=== PATIENT | male | born 1950 | race Caucasian/White ===

== ENCOUNTER 2020-12-03 11:19 | Outpatient (RCR) | payer MEDICARE, OTHER, SELFPAY | END 2020-12-12 23:59 | disposition home or self-care (01) | LOC: SPT 11:19 | PROVIDERS: Family Provider Internal Medicine; PCP Internal Medicine; Referring Provider Internal Medicine; Visit Provider Internal Medicine | DX: H81.10 Benign paroxysmal vertigo, unspecified ear (principal) | CPT/HCPCS: 95992; 97110; 97162 ==

== ENCOUNTER 2023-06-09 08:20 | Outpatient (CLI) | payer MEDICARE, SELFPAY ==
--- NOTE | 2023-06-09 08:30 | CT_ITS ---
WS: [id number] CT ABDOMEN WITH CONTRAST HISTORY: ABDOMINAL PAIN Contiguous single phase 5 mm axial imaging performed to the abdomen. Oral contrast has been provided. Coronal and sagittal reformats are submitted. All CT scans at [facility] use at least one of these dose optimization techniques: automated exposure control; mA and/or kV adjustment per patient size (includes targeted exams where dose is matched to clinical indication); or iterative reconstruct ion. IV CONTRAST: Omnipaque 350; 100 mL IV. Oral contrast: Yes. DLP: 449.69 mGy.cm COMPARISON: 07/29/2014 and ultrasound 05/07/2023 Lower thorax: Benign granulomata at the lung bases. Heart is normal size. No hiatal hernia. Liver/biliary system: Normal size liver with granulomata. Cyst in the LEFT lobe of the liver measures 0.8 mm. No mass or bile duct dilatation. Normal portal vein. Gallbladder: Prior cholecystectomy. Pancreas: Normal size pancreas and pancreatic duct. No adjacent inflammation. Spleen: Normal with granulomata. Adrenal glands: Normal. Right kidney: Normal size kidney. There is scattered low-attenuation masses consistent with cysts. So me of these are too small to characterize. No solid mass or obstruction. Left kidney: Normal size kidney with several cortical cysts. The largest measuring up to 1.2 cm in th e upper pole. There are additional low-attenuation areas which are too small to characterize but prob ably cysts also. Aorta: Normal. Very small caliber celiac axis. There is not a lot of stenosis. This may be congenital . SMA is normal. Lymphadenopathy: Single subcentimeter lymph node in the RIGHT lower quadrant. Free fluid: None. GI tract: As visualized in the abdomen there are few scattered diverticula. No wall thickening or adj acent inflammation. Abdominal wall: Unremarkable abdominal wall. No hernia. Visualized osseous structures: Unremarkable. IMPRESSION: 1. No acute abdominal or pelvic abnormalities are identified. 2. Prior cholecystectomy. 3. Bilateral renal cysts. No solid masses or obstruction. 4. 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 No ischemic changes in the GI tract ident ified at this time.
[2023-06-09] MEDS: iohexol 350 mg/mL 500 mL Btl (per mL) PO (09:01)
[2023-06-09 09:12] LABS: Blood Urea Nitrogen 11 mg/dL (8-23)
[2023-06-09] MEDS: iohexol 350 mg/mL 500 mL Btl (per mL) IV (09:17)
== END 2023-06-09 08:21 | disposition home or self-care (01) ==
PROVIDERS: Radiology Diagnostic Radiology; PCP Internal Medicine; Visit Provider Internal Medicine
DX: R10.9 Unspecified abdominal pain (principal); Z90.49 Acquired absence of other specified parts of digestive tract
CPT/HCPCS: 74160; 82565; 84520; Q9967

== ENCOUNTER 2023-11-11 07:27 | Outpatient (RCR) | payer MEDICARE, SELFPAY | END 2023-11-12 23:59 | disposition home or self-care (01) | LOC: SPT 07:27 | PROVIDERS: PCP Internal Medicine; Visit Provider Internal Medicine | DX: M24.812 Other specific joint derangements of left shoulder, not elsewhere classified (principal) | CPT/HCPCS: 97161 ==

== ENCOUNTER 2023-11-13 06:00 | Outpatient (RCR) | payer MEDICARE, SELFPAY | END 2023-12-13 23:59 | disposition home or self-care (01) | LOC: SPT 06:00 | PROVIDERS: PCP Internal Medicine; Visit Provider Internal Medicine | DX: M24.812 Other specific joint derangements of left shoulder, not elsewhere classified (principal) | CPT/HCPCS: 97110 ==

== ENCOUNTER 2023-12-14 06:00 | Outpatient (RCR) | payer MEDICARE, SELFPAY | END 2023-12-22 23:59 | disposition home or self-care (01) | LOC: SPT 06:00 | PROVIDERS: PCP Internal Medicine; Visit Provider Internal Medicine | DX: M24.812 Other specific joint derangements of left shoulder, not elsewhere classified (principal) | CPT/HCPCS: 97530 ==

== ENCOUNTER 2024-10-26 09:21 | Outpatient (RCR) | payer MEDICARE, SELFPAY | END 2024-11-11 23:59 | disposition home or self-care (01) | LOC: SPT 09:21 | PROVIDERS: Visit Provider Family Medicine | DX: M75.22 Bicipital tendinitis, left shoulder (principal) | CPT/HCPCS: 97110; 97161 ==

== ENCOUNTER 2024-11-12 06:30 | Outpatient (RCR) | payer MEDICARE, SELFPAY | END 2024-12-12 23:59 | disposition home or self-care (01) | LOC: SPT 06:30 | PROVIDERS: Visit Provider Family Medicine | DX: M75.22 Bicipital tendinitis, left shoulder (principal) | CPT/HCPCS: 97032; 97110; 97164 ==

== ENCOUNTER 2024-12-13 06:00 | Outpatient (RCR) | payer MEDICARE, SELFPAY | END 2024-12-23 08:25 | disposition home or self-care (01) | LOC: SPT 06:00 | PROVIDERS: Visit Provider Family Medicine | DX: M25.522 Pain in left elbow (principal); M25.512 Pain in left shoulder | CPT/HCPCS: 97110; 97140 ==

== ENCOUNTER → 2025-01-11 08:57 | Outpatient (BNVA) | payer MEDICARE, SELFPAY | PROVIDERS: PCP Family Medicine; Visit Provider Student in an Organized Health Care Education/Training Program | DX: M25.522 Pain in left elbow (principal); S46.002A Unspecified injury of muscle(s) and tendon(s) of the rotator cuff of left shoulder, initial encounter; M75.122 Complete rotator cuff tear or rupture of left shoulder, not specified as traumatic; X58.XXXA Exposure to other specified factors, initial encounter | CPT/HCPCS: 20610; 73080; 99204; J3301; J9999 ==

== ENCOUNTER → 2025-05-10 11:01 | Outpatient (BNVA) | payer MEDICARE, SELFPAY | PROVIDERS: PCP Family Medicine; Visit Provider Student in an Organized Health Care Education/Training Program | DX: S46.002A Unspecified injury of muscle(s) and tendon(s) of the rotator cuff of left shoulder, initial encounter (principal); Z71.89 Other specified counseling; M75.42 Impingement syndrome of left shoulder; X58.XXXA Exposure to other specified factors, initial encounter | CPT/HCPCS: 20610; 99213; J3301; J9999 ==

== ENCOUNTER 2025-05-30 12:09 | Observation (INO) | payer MEDICARE, SELFPAY ==
[2025-05-30] VITALS (30 sets, daily range): BP systolic 109–134; BP diastolic 62–81; PULSE 50–78; RESP 13–23; TEMP 36.4–36.8; O2SAT 92–98; BMI 29.3
--- NOTE | 2025-05-30 12:11 | ECG_ITS ---
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 Measurements Intervals [place] Rate: 75 P: 32 MN: 164 QRS: -1 QRSD: 159 T: 124 QT: 399 QTc: 446 Interpretive Statements SINUS RHYTHM LEFT BUNDLE BRANCH BLOCK [120+ ms QRS DURATION, 80+ ms Q/S IN V1/V2, 85+ ms R IN I/aVL/V5/V6] No previous ECG available for comparison Electronically Signed On 05-30-2025 17:43:28 CDT by Tessa Lawler M.D. [email or web address]
--- NOTE | 2025-05-30 12:24 | ECG_ITS ---
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 Measurements Intervals [place] Rate: 68 P: 163 DC: 181 QRS: 204 QRSD: 157 T: 50 QT: 415 QTc: 444 Interpretive Statements SINUS RHYTHM ARM LEADS REVERSED [INVERTED P AND QRS IN I] Left bundle branch block pattern Electronically Signed On 05-30-2025 17:43:23 CDT by Tessa Lawler M.D. [email or web address]
--- NOTE | 2025-05-30 12:46 | XR_ITS ---
WS: [id number] XR chest 1V portable [id number] REASON FOR EXAM: chest pain FINDINGS: Mild tortuosity and ectasia of the thoracic aorta. Normal heart size. Calcified granulomatous disease bilaterally. No acute pulmonary parenchymal or pleural abnormality is identified. Moderate degenerative spondylosis in the mid and lower thoracic spine. XR/XR chest 1V portable [id number] IMPRESSION: No acute chest abnormality.
--- OUTSIDE RECORDS SUMMARY | 2025-05-30 13:01 | XMS_ITS | Clinical Summary ---
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
--- OUTSIDE RECORDS SUMMARY | 2025-05-30 13:02 | XMS_ITS | Encounter Summary ---
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) Social History Tobacco Use Types Packs/Day Years Used Date Smoking Tobacco: Never Assessed Sex and Gender Information Value Date Recorded Sex Assigned at Not on file 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 Gender Identity Not on file Sexual Orientation Not on file documented as of this encounter Plan of Treatment Not on file documented as of this encounter Procedures Procedure Name Priority Date/Time Associated Diagnosis Comments T3 FREE Routine 06/20/2007 3:39 PM CDT T4 FREE Routine 06/20/2007 3:39 PM CDT CBC WITH DIFFERENTIAL Routine 06/20/2007 4:31 AM CDT SEDIMENTATION RATE Routine 06/20/2007 4: 31 AM CDT PROTIME-INR Routine 06/20/2007 4:31 AM CDT TSH Routine 06/20/2007 4:31 AM CDT LIPID PANEL Routine 06/20/2007 4:31 AM CDT COMPREHENSIVE METABOLIC PANEL Routine 06/20/2007 4:31 AM CDT POC GLUCOSE Routine 06/20/2007 4:22 AM CDT POC GLUCOSE Routine 06/20/2007 2:23 AM CDT IR VENOUS HEAD Routine 06/19/2007 10:32 PM CDT MRI BRAIN W WO CONTRAST Routine 06/19/2007 10:[address] HEAD WO CONTRAST Routine 06/19/2007 1 0:[address] HEAD WO CONTRAST Routine 06/19/2007 1 0:32 PM CDT XR CHEST PA OR AP 1 VW Routine 7 10:32 PM CDT PT AND APTT Routine 06/19/2007 9:02 PM CDT CBC WITH DIFFERENTIAL Routine 06/19/2007 9:02 PM CDT POC ELECTROLYTES/BMP Routine 06/19/2007 8:52 PM CDT POC CREATININE Routine 06/19/2007 8:51 PM CDT documented in this encounter Results * T4 FREE (06/20/2007 3:39 PM CDT) T4 FREE 1.01 0.89 - 1.76 ng/dL INTERFACE SYSTEM 06/20/2007 3:39 PM CDT us Isabella Sanchez MD CHEMISTRY ORDERABLES Robert erika INTERFACE SYSTEM Refer to clinic/hospital department * T3 FREE (06/20/2007 3:39 PM CDT) T3 FREE 2.5 2.3 - 4.2 pg/mL INTERFACE SYSTEM 06/20/2007 3:39 PM CDT Isabella Sanchez MD CHEMISTRY ORDERABLES Robert erika Performing Organization Address [facility] de Phone Number INTERFACE SYSTEM Refer to clinic/hospital department * (ABNORMAL) TSH (06/20/2007 4:31 AM CDT) TSH 6.610(H) 0.350 - 5.500 uIU/ml INTERFACE SYSTEM Comment: As of 05 at 3:00 p.m. [facility] has changed the methodology for TSH, and with this change the reference range has changed from 0.49-4.67 to 0.35-5.5 uIU/ml. 06/20/2007 4:31 AM CDT us Isabella Sanchez MD CHEMISTRY ORDERABLES Robert erika Performing Organization Address [facility] Phone Number INTERFACE SYSTEM Refer to clinic/hospital department * (ABNORMAL) LIPID PANEL (06/20/2007 4:31 AM CDT) CHOLESTEROL 156 75 - 200 mg/dL INTERFACE SYSTEM TRIGLYCERIDE 323(H) 0 - 200 mg/dL INTERFACE SYSTEM HDL 27(L) 40 - 60 mg/dL INTERFACE SYSTEM CALCULATED LDL CHOLESTEROL 64 0 - 130 mg/dL INTERFACE SYSTEM CALCULATED TOTAL CHOLESTEROL TO HDL RATIO 5.78(H) 3.43 - 4.97 INTERFACE SYSTEM 06/20/2007 4:31 AM CDT us Isabella Sanchez MD CHEMISTRY ORDERABLES Robert erika Performing Organization Address [facility] de Phone Number INTERFACE SYSTEM Refer to clinic/hospital department * (ABNORMAL) COMPREHENSIVE METABOLIC PANEL (06/20/2007 4:31 AM CDT) GLUCOSE 97 70 - 110 mg/dL INTERFACE SYSTEM BUN 16 9 - 20 mg/dL INTERFACE SYSTEM CREATININE 1.2 0.7 - 1.5 mg/dL INTERFACE SYSTEM SODIUM 141 136 - 145 mEq/L INTERFACE SYSTEM POTASSIUM 4.0 3.5 - 5.0 mEq/L INTERFACE SYSTEM CHLORIDE 111(H) 95 - 110 mEq/L INTERFACE SYSTEM CO2 26 22 - 32 mmol/l INTERFACE SYSTEM CALCIUM 8.5 8.4 - 10.5 mg/dL INTERFACE SYSTEM TOTAL PROTEIN 6.1(L) 6.3 - 8.2 g/dL INTERFACE SYSTEM ALBUMIN 3.6 3.5 - 5.0 g/dL INTERFACE SYSTEM ALKALINE PHOSPHATASE 50 25 - 100 U/L INTERFACE SYSTEM AST 25 8 - 33 U/L INTERFACE SYSTEM ALT 22 4 - 36 IU/L INTERFACE SYSTEM BILIRUBIN TOTAL 0.3 0.3 - 1.2 mg/dL INTERFACE SYSTEM GLOBULIN (CALC) 2.5 2.4 - 3.9 g/dL INTERFACE SYSTEM ALBUMIN/GLOBULIN RATIO 1.4 1.0 - 2.3 INTERFACE SYSTEM ANION GAP 8(L) 9 - 20 mEq/L INTERFACE SYSTEM OSMOLALITY, CALCULATED 291 275 - 295 mOsm/Kg INTERFACE SYSTEM 06/20/2007 4:31 AM CDT Isabella Sanchez MD CHEMISTRY ORDERABLES Robert erika INTERFACE SYSTEM Refer to clinic/hospital department * PROTIME-INR (06/20/2007 4:31 AM CDT) PROTIME 14.8 13.0 - 15.7 Secs INTERFACE SYSTEM Comment: As of 06 note change in normal range. INR 1.0 INTERFACE SYSTEM Comment: Expected Values for INR: DVT/PE Goal INR 2.5; range 2.0 - 3.0 Valve Replacement Tissue Goal INR 2.5; range 2.0 - 3.0 Mechanical Goal INR 3.0; range 2.5 - 3.5 POST-PA Goal INR 2.5; range 2.0 - 3.0 or Goal 3.0; range 2.5 - 3.5 Atrial Fibrillation Goal INR 2.5; range 2.0 - 3.0 Ischemic Stroke Goal INR 2.5; range 2.0 - 3.0 For additional information see Guidelines for Anticoagulation available from the pharmacy Paresh Johnson 06/20/2007 4:31 AM CDT Isabella Sanchez MD HEMATOLOGY ORDERABLES Ed ited INTERFACE SYSTEM Refer to clinic/hospital department * SEDIMENTATION RATE (06/20/2007 4:31 AM CDT) ESR (SEDIMENTATION RATE) 12 0 - 20 mm/hr INTERFACE SYSTEM 06/20/2007 4:31 AM CDT Isabella Sanchez MD HEMATOLOGY ORDERABLES Ed ited Performing Organization Address City/[facility] de Phone Number INTERFACE SYSTEM Refer to clinic/hospital department * (ABNORMAL) CBC WITH DIFFERENTIAL (06/20/2007 4:31 AM CDT) WBC 4.1(L) 4.8 - 10.8 K/ul INTERFACE SYSTEM RBC 4.64 4.60 - 6.20 Mil/ul INTERFACE SYSTEM HEMOGLOBIN 12.3(L) 14.0 - 18.0 g/dL INTERFACE SYSTEM HEMATOCRIT 38.1(L) 41.0 - 53.0 % INTERFACE SYSTEM MCV 82.1(L) 84.0 - 103.0 Fl INTERFACE SYSTEM MCH 26.5(L) 27.0 - 34.0 pg INTERFACE SYSTEM MCHC 32.3 30.0 - 35.0 g/dL INTERFACE SYSTEM RDW 14.8(H) 11.0 - 14.5 % INTERFACE SYSTEM PLATELETS 175 140 - 440 K/ul INTERFACE SYSTEM MPV 10.4 8.9 - 12.8 Fl INTERFACE SYSTEM NEUTROPHILS 54.6 42.2 - 75.2 % INTERFACE SYSTEM LYMPHOCYTES 30.0 24.0 - 44.0 % INTERFACE SYSTEM MONOCYTES 9.8 2.0 - 10.0 % INTERFACE SYSTEM EOSINOPHILS 4.6 0.0 - 7.0 % INTERFACE SYSTEM BASOPHILS 1.0 0.0 - 1.0 % INTERFACE SYSTEM NEUTROPHIL ABSOLUTE 2.2 2.0 - 8.0 K/ul INTERFACE SYSTEM LYMPHOCYTE ABSOLUTE 1.2 1.2 - 4.0 K/ul INTERFACE SYSTEM MONOCYTE ABSOLUTE 0.4 0.1 - 0.6 K/ul INTERFACE SYSTEM EOSINOPHIL ABSOLUTE 0.2 0.0 - 0.7 K/ul INTERFACE SYSTEM BASOPHILS ABSOLUTE 0.0 0.0 - 0.2 K/ul INTERFACE SYSTEM 06/20/2007 4:31 AM CDT us Isabella Sanchez MD HEMATOLOGY ORDERABLES Ed ited Performing Organization Address [facility] Phone Number INTERFACE SYSTEM Refer to clinic/hospital department * (ABNORMAL) POC GLUCOSE (06/20/2007 4:22 AM CDT) GLUCOSE POC 105(H) 60 - 100 mg/dL INTERFACE SYSTEM 06/20/2007 4:22 AM CDT us Isabella Sanchez MD POINT OF CARE TESTING Ed ited Performing Organization Address [facility] Phone Number INTERFACE SYSTEM Refer to clinic/hospital department * (ABNORMAL) POC GLUCOSE (06/20/2007 2:23 AM CDT) GLUCOSE POC 119(H) 60 - 100 mg/dL INTERFACE SYSTEM 06/20/2007 2:23 AM CDT us Isabella Sanchez MD POINT OF CARE TESTING Ed ited Performing Organization Address [facility] Phone Number INTERFACE SYSTEM Refer to clinic/hospital department * CT HEAD WO CONTRAST (06/19/2007 10:32 PM CDT) Anatomical Region Laterality Modality Head Other 06/19/2007 10:3 2 PM CDT Narrative 06/19/2007 10:32 PM CDT Exam: CT Head without ContrastDate/Time of Exam: Jun 21, 2007 1:17:21 AMHistory: Stroke. Technique: 2.5 and 5.0 mm axial. Comparison: CT head of 06/19/2007. Findings: The ventricles and subarachnoid spaces are symmetric. The brain parenchyma is normal inattenuation with preservation of the sherwood-white matter interface. No intracranial hemorrhage isidentified. The visualized paranasal sinuses, orbits, and mastoid air cells are unremarkable. Impression: 1. Negative for acute intracranial process. - Dictated By: Francesca Paige M.D. Electronically Signed By: Francesca Paige M.D. Date Signed: 06/21/07 Procedure Note 08/05/2009 Exam: CT Head without ContrastDate/Time of Exam: Jun 21, 2007 1:17:21 AMHistory: Stroke. Technique: 2.5 and 5.0 mm axial. Comparison: CT head of 06/19/2007. Findings: The ventricles and subarachnoid spaces are symmetric. The brain parenchymais normal inattenuation with preservation of the sherwood-white matter interface. No intracranialhemorrhage isidentified. The visualized paranasal sinuses, orbits, and mastoid air cells are unremarkable. Impression: 1. Negative for acute intracranial process. - Dictated By: Francesca Paige M.D. Electronically Signed By: Francesca Paige M.D. Date Signed: 06/21/[address] ORDERABLES Final Result * MRI BRAIN W WO CONTRAST (06/19/2007 10:32 PM CDT) Anatomical Region Laterality Modality Head Other 06/19/2007 10:3 2 PM CDT Narrative 06/19/2007 10:32 PM CDT The patient has aphasia and right-sided weakness. Status post TPA and intervention. No structural lesions of the brain are identified on the noncontrast T1-weighted images. Theintracranial flow-voids are unremarkable. The posterior fossa has a normal appearance of thebrainstem and cerebellum. FLAIR images show no sites of abnormal signal throughout the brain. DWIshows no sites of restricted diffusion. 20 mL of Magnevist contrast were given during this study. Postcontrast images show no areas ofabnormal enhancement, and a normal appearance of the meninges. Impression: No appreciable disease. - Dictated By: Braden Clements M.D. Electronically Signed By: Braden Clements M.D. Date Signed: 06/20/07 Procedure Note 08/05/2009 The patient has aphasia and right-sided weakness. Status post TPA andintervention. No structural lesions of the brain are identified on the noncontrastT1-weighted images. Theintracranial flow-voids are unremarkable. The posterior fossa has a normal appearanceof thebrainstem and cerebellum. FLAIR images show no sites of abnormal signal throughout the brain.DWIshows no sites of restricted diffusion. 20 mL of Magnevist contrast were given during this study. Postcontrastimages show no areas ofabnormal enhancement, and a normal appearance of the meninges. Impression: No appreciable disease. - Dictated By: Barden Clements M.D. Electronically Signed By: Braden Clements M.D. Date Signed: 06/20/07 Adrian Weeks MR ORDERABLES Final Result * IR VENOUS HEAD (06/19/2007 10:32 PM CDT) Anatomical Region Laterality Modality Head Other 06/19/2007 10:3 2 PM CDT Narrative 06/19/2007 10:32 PM CDT Exam: SP - Head / NeckDate/Time of Exam: Jun 19, 2007 10:57:15 PM4-vessel cerebral angiogram with stroke intervention (thrombolysis)Clinical Indication: 56-year-old male patient with the acute onset of global aphasia and right-sidedweakness (0/5) beginning at 7:[address] obtained at 8:36 p. m. shows no acute hemorrhage,sulcal effacement or loss of sherwood-white differentiation. Stroke coordinators and neurologist haverequested possible trans-catheter arterial thrombolysis. Procedures: 1. Supervision of moderate conscious intravenous sedation with fentanyl and versed. 2. Selective catheterization of the right vertebral artery with biplane angiography of the head. 3. Selective catheterization of the right common carotid artery with biplane angiography of the neck. 4. Selective catheterization of the right common carotid artery with biplane angiography of the head. 5. Selective catheterization of the left subclavian with single-plane angiography of the neck region. 6. Selective catheterization of the left vertebral artery with biplane angiography of the neck region. 7. Selective catheterization of the left vertebral artery with biplane angiography of the head. 8. Selective catheterization of the left common carotid artery with biplane angiography of the neck. 9. Selective catheterization of the left common carotid artery with biplane angiography of the headx2.10. Selective catheterization of the left internal carotid artery with biplane angiography of the headx3.11. Super-selective microcatheterization of the left middle cerebral artery (M1 segment) withsingle-plane angiography of the head, microcatheter administration of pharmacologic thrombolyticagent and then repeat microcatheter angiography. Procedures in detail: The patient was evaluated in the emergency department, again he was globallyaphasic with complete right-sided weakness. The indications, alternatives, risks and benefits werediscussed with the patient, his and their extended family members. They understand that therisks include a re-perfusion hemorrhage, their questions were answered, and the patient's spousehas signed informed written consent. The patient was transported to the interventionalneuroradiology section and the right groin was sterilely prepped and draped. With moderateconscious intravenous sedation and local anesthesia, a 19-gauge needle was used for single-wallaccess to the right common femoral artery. Under fluoroscopic guidance, a 035 J introducerguidewire was advanced to the abdominal aorta, and the needle was exchanged for a 6 [place] shortvascular sheath. The sheath was attached with a continuous drip of heparinized saline, and thepatient received a 2000 unit bolus of intravenous heparin. The introducer and guidewire wereexchanged for a 5 [place] braided JB1 catheter and 035 Glidewire. The system was advanced to theaortic arch and catheterization was performed of the right subclavian artery. The Glidewire wasremoved and with contrast administration selective catheterization was performed of the rightvertebral artery. Angiography was performed, the catheter was pulled back and selectivecatheterization was performed at the right common carotid. Angiography was performed, the catheterwas pulled back and catheterization was performed of the left subclavian artery. Angiography wasperformed and selective catheterization was performed of the left vertebral artery. Angiography wasperformed and selective catheterization was performed of the left common carotid. Angiography wasperformed. At each of these catheterizations, angiography was performed as delineated above. Adouble-flush technique was used repeatedly throughout the procedures. A 035 exchange length Rosenwas advanced through the JB1 catheter, and the catheter was exchanged for a 6 [place] Envoy guidecatheter. That guide catheter had been attached to a continuous drip of heparinized saline. Withrotid, the Calzada guidewire was exchanged for the Glidewire and a roadmap was obtained of the leftcarotid bifurcation. With the Glidewire, the guide catheter was advanced such that selectivecatheterization was performed of the left internal carotid artery. The glidewire was exchanged fora microcatheter/microguidewire. That system was also attached to a continuous drip of heparinizedsaline. With a roadmap, the microcatheter/micro guidewire were advanced into the distal leftinternal carotid artery and then into the left middle cerebral artery distal M1 segment immediatelyproximal to the left trifurcation. Activase 5 mg were slowly administered through themicrocatheter. The microcatheter was pulled back slightly, and then another 5 mg was administered. With a roadmap, the microcatheter was pulled back to the mid-portion of the left M1 segment andthen another 5 mg was administered. Finally, the microcatheter was pulled back to the proximal leftM1 segment and a last 5 mg were administered. The Activase was administered slowly with anapproximate rate of 1 mg per 1-2 minutes. Angiography was performed through the microcatheter andthe microcatheter was removed from the patient. Completion angiography was performed biplane headthrough the left internal carotid guide catheter. The guide catheter was removed from the leftcarotid system under fluoroscopic guidance, slowly with continuous puffs of contrast to showpostprocedure continued patency of the left internal carotid system. The guide catheter was removedfrom the patient. The right groin 6 [place] sheath was exchanged for the Angio-Seal closure devicesystem. Hemostasis was obtained, and a postprocedure neurologic exam was performed. The entireprocedure was completed within 5 hours and 30 minutes of stroke onset. Post-procedure, the patientdemonstrated 2/5 right-sided movements. There were no immediate complications. The estimated bloodloss is 20 mL. Findings: Right vertebral: Unremarkable V3 and V3, right PICA, AICAs, basilar, SCAs and income tax analyst. Right carotid bifurcation: Without significant degree of stenosis. Right carotid, head: Unremarkable distal ICA, A1, A2, M1 and M2. 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 Left vertebral: Shows a direct origin from the aorta with unremarkable V3 and V4, left PICA, AICAs,basilar, SCAs and income tax analyst. Left common carotid bifurcation: Without significant degree of stenosis. Left carotid, head: Unremarkable distal ICA, A1, A2, M1 and M2. Left internal carotid, head: With magnification, shows a patent ICA terminus and facilitates thesuper- selective microcatheterization of the left middle cerebral artery. Left middle cerebral artery: Unremarkable M1, the trifurcation demonstrates slow flow in a left T0gdlaxl and decreased flow in several M3 branches. Post-activase there was improved flowangiographically. Impression: successful intra-arterial thrombolytic administration to left MCA branches, as describedabove, post-procedure there was improved flow and the patient demonstrated clinicalimprovement- Dictated By: Eric Watts M.D. Electronically Signed By: Eric Watts M.D. Date Signed: 06/20/07 [facility] Procedure Note 08/05/2009 Exam: SP - Head / NeckDate/Time of Exam: Jun 19, 2007 10:57:15 PM4-vessel cerebral angiogram with strokeintervention (thrombolysis)Clinical Indication: 56-year-old male patient with the acute onset of global aphasia andright-sidedweakness (0/5) beginning at 7:[address] obtained at 8:36 p. m. shows no acute hemorrhage,sulcal effacement or loss of sherwood- whitedifferentiation. Stroke coordinators and neurologist haverequested possible trans-catheter arterialthrombolysis. Procedures: 1. Supervision of moderate conscious intravenous sedation with fentanyland versed. 2. Selective catheterization of the right vertebral artery with biplane angiography ofthe head. 3. Selective catheterization of the right common carotid artery with biplaneangiography of the neck. 4. Selective catheterization of the right common carotid artery withbiplane angiography of the head. 5. Selective catheterization of the left subclavian with single-planeangiography of the neck region. 6. Selective catheterization of the left vertebral artery with biplaneangiography of the neck region. 7. Selective catheterization of the left vertebral artery with biplaneangiography of the head. 8. Selective catheterization of the left common carotid artery with biplaneangiography of the neck. 9. Selective catheterization of the left common carotid artery withbiplane angiography of the headx2.10. Selective catheterization of the left internal carotid artery withbiplane angiography of the headx3.11. Super-selective microcatheterization of the left middle cerebral artery(M1 segment) withsingle-plane angiography of the head, microcatheter administration of pharmacologicthrombolyticagent and then repeat microcatheter angiography. Procedures in detail: The patient was evaluated in the emergency department, again he wasgloballyaphasic with complete right-sided weakness. The indications, alternatives, risks and benefitswerediscussed with the patient, his and their extended family members. They understand that therisksinclude a re-perfusion hemorrhage, their questions were answered, and the patient's spousehassigned informed written consent. The patient was transported to the interventionalneuroradiology sectionand the right groin was sterilely prepped and draped. With moderateconscious intravenous sedation and localanesthesia, a 19-gauge needle was used for single-wallaccess to the right common femoral artery. Underfluoroscopic guidance, a 035 J introducerguidewire was advanced to the abdominal aorta, and the needlewas exchanged for a 6 [place] African shortvascular sheath. The sheath was attached with a continuous drip ofheparinized saline, and thepatient received a 2000 unit bolus of intravenous heparin. Theintroducer and guidewire wereexchanged for a 5 [place] braided JB1 catheter and 035 Glidewire. The system wasadvanced to theaortic arch and catheterization was performed of the right subclavian artery. TheGlidewire wasremoved and with contrast administration selective catheterization was performed of therightvertebral artery. Angiography was performed, the catheter was pulled back and selectivecatheterization wasperformed at the right common carotid. Angiography was performed, the catheterwas pulled back andcatheterization was performed of the left subclavian artery. Angiography wasperformed and selectivecatheterization was performed of the left vertebral artery. Angiography wasperformed and selective catheterizationwas performed of the left common carotid. Angiography wasperformed. At each of these catheterizations,angiography was performed as delineated above. Adouble-flush technique was used repeatedly throughoutthe procedures. A 035 exchange length Rosenwas advanced through the JB1 catheter, and the catheter wasexchanged for a 6 [place] Envoy guidecatheter. That guide catheter had been attached to a continuous dripof heparinized saline. Withrotid, the Calzada guidewire was exchanged for the Glidewire and aroadmap was obtained of the leftcarotid bifurcation. With the Glidewire, the guide catheter wasadvanced such that selectivecatheterization was performed of the left internal carotidartery. The glidewire was exchanged fora microcatheter/microguidewire. That system was also attached to acontinuous drip of heparinizedsaline. With a roadmap, the microcatheter/micro guidewire wereadvanced into the distal leftinternal carotid artery and then into the left middle cerebral arterydistal M1 segment immediatelyproximal to the left trifurcation. Activase 5 mg were slowlyadministered through themicrocatheter. The microcatheter was pulled back slightly, and thenanother 5 mg was administered. With a roadmap, the microcatheter was pulled back to the mid-portion ofthe left M1 segment andthen another 5 mg was administered. Finally, the microcatheter was pulled backto the proximal leftM1 segment and a last 5 mg were administered. The Activase was administered slowlywith anapproximate rate of 1 mg per 1-2 minutes. Angiography was performed through the microcatheterandthe microcatheter was removed from the patient. Completion angiography was performed biplane headthroughthe left internal carotid guide catheter. The guide catheter was removed from the leftcarotid systemunder fluoroscopic guidance, slowly with continuous puffs of contrast to showpostprocedure continuedpatency of the left internal carotid system. The guide catheter was removedfrom the patient. The rightgroin 6 [place] African sheath was exchanged for the Angio-Seal closure devicesystem. Hemostasis wasobtained, and a postprocedure neurologic exam was performed. The entireprocedure was completed within 5hours and 30 minutes of stroke onset. Post-procedure, the patientdemonstrated 2/5 right-sided movements.There were no immediate complications. The estimated bloodloss is 20 mL. Findings: Right vertebral: Unremarkable V3 and V3, right PICA, AICAs, basilar, SCAs and income tax analyst. Right carotid bifurcation: Without significant degree of stenosis. Right carotid, head: Unremarkable distal ICA, A1, A2, M1 and M2. 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 Left vertebral: Shows a direct origin from the aorta with unremarkable V3 and V4, leftPICA, AICAs,basilar, SCAs and income tax analyst. Left common carotid bifurcation: Without significant degree of stenosis. Left carotid, head: Unremarkable distal ICA, A1, A2, M1 and M2. Left internal carotid, head: With magnification, shows a patent ICA terminus and facilitatesthesuper- selective microcatheterization of the left middle cerebral artery. Left middle cerebral artery: Unremarkable M1, the trifurcation demonstrates slow flow in a [id number] and decreased flow in several M3 branches. Post-activase there was improved flowangiographically. Impression: successful intra-arterial thrombolytic administration to left MCAbranches, as describedabove, post-procedure there was improved flow and the patient demonstratedclinicalimprovement- Dictated By: Eric Watts M.D. Electronically Signed By: Eric Watts M.D. Date Signed: 06/20/07 GRB Gary Carballo DO IR ORDERABLES Final Resu lt * XR CHEST PA OR AP (06/19/2007 10:32 PM CDT) Anatomical Region Laterality Modality Chest Other 06/19/2007 10:3 2 PM CDT Narrative 06/19/2007 10:32 PM CDT Exam: Chest - PADate/Time of Exam: Jun 19, 2007 9:23:33 PMHistory: Please see order comments. Possible CVA. Comparison: None. Findings: Poor inspiratory effort is present. A normal cardiomediastinal silhouette without acuteconsolidative alveolar infiltrate, definite effusion, or pneumothorax is identified. Impression: 1. Poor inspiratory effort without definite acute cardiopulmonary process identified. - Dictated By: Francesca Paige M.D. Electronically Signed By: Francesca Paige M.D. Date Signed: 06/19/07 SDM Procedure Note 08/05/2009 Exam: Chest - PADate/Time of Exam: Jun 19, 2007 9:23:33 PMHistory: Please see order comments. Possible CVA. Comparison: None. Findings: Poor inspiratory effort is present. A normal cardiomediastinal silhouettewithout acuteconsolidative alveolar infiltrate, definite effusion, or pneumothorax is identified. Impression: 1. Poor inspiratory effort without definite acute cardiopulmonary processidentified. - Dictated By: Francesca Paige M.D. Electronically Signed By: Francesca Paige M.D. Date Signed: 06/19/07 NATHAN Gary Carballo DO DIAGNOSTIC IMAGING ORDERAB LES Final Result * CT HEAD WO CONTRAST (06/19/2007 10:32 PM CDT) Anatomical Region Laterality Modality Head Other 06/19/2007 10:3 2 PM CDT Narrative 06/19/2007 10:32 PM CDT Exam: CT Head without ContrastDate/Time of Exam: Jun 19, 2007 8:49:38 PMHistory: Stroke (Please follow Stroke Activation). Technique: 2.5 and 5.0 mm axial. Comparison: None. Findings: The ventricles and subarachnoid spaces are symmetric and normal in signal. The brainparenchyma is normal in attenuation with preservation of the sherwood-white matter interface. Nointracranial hemorrhage is identified. The visualized paranasal sinuses, orbits, and mastoid aircells are unremarkable. Impression: 1. Negative for acute intracranial process. - Dictated By: Francesca Paige M.D. Electronically Signed By: Francesca Paige M.D. Date Signed: 06/19/07 [facility] Procedure Note 08/05/2009 Exam: CT Head without ContrastDate/Time of Exam: Jun 19, 2007 8:49:38 PMHistory: Stroke (Please follow Stroke Activation). Technique: 2.5 and 5.0 mm axial. Comparison: None. Findings: The ventricles and subarachnoid spaces are symmetric and normal in signal.The brainparenchyma is normal in attenuation with preservation of the sherwood-white matter interface.Nointracranial hemorrhage is identified. The visualized paranasal sinuses, orbits, and mastoid aircellsare unremarkable. Impression: 1. Negative for acute intracranial process. - Dictated By: Francesca Paige M.D. Electronically Signed By: Francesca Paige M.D. Date Signed: 06/19/07 NATHAN [address] Sj Ed [address] ORDERABLES Final Result * PT AND APTT (06/19/2007 9:02 PM CDT) PROTIME 14.3 13.0 - 15.7 Secs INTERFACE SYSTEM Comment: As of 06 note change in normal range. INR 1.0 INTERFACE SYSTEM Comment: Expected Values for INR: DVT/PE Goal INR 2.5; range 2.0 - 3.0 Valve Replacement Tissue Goal INR 2.5; range 2.0 - 3.0 Mechanical Goal INR 3.0; range 2.5 - 3.5 POST-PA Goal INR 2.5; range 2.0 - 3.0 or Goal 3.0; range 2.5 - 3.5 Atrial Fibrillation Goal INR 2.5; range 2.0 - 3.0 Ischemic Stroke Goal INR 2.5; range 2.0 - 3.0 For additional information see Guidelines for Anticoagulation available from the pharmacy Paresh Johnson PTT 30.6 21.6 - 35.6 Secs INTERFACE SYSTEM Comment: Therapeutic Range: Hi-level PE/DVT heparin protocol 80.1 -95.0 sec Lo-level PE/DVT heparin protocol 67.1 - 80.0 sec Cardiac Heparin Protocol 67.1 - 85.0 sec Neuro Heparin Protocol 67.1 - 80.0 sec As of 08/20/2006 note change in APTT Normal Range. 06/19/2007 9:02 PM CDT Gary Carballo DO HEMATOLOGY ORDERABLES Edit ed INTERFACE SYSTEM Refer to clinic/hospital department * (ABNORMAL) CBC WITH DIFFERENTIAL (06/19/2007 9:02 PM CDT) Pathologist [facility] WBC 4.0(L) 4.8 - 10.8 K/ul INTERFACE SYSTEM RBC 4.66 4.60 - 6.20 Mil/ul INTERFACE SYSTEM HEMOGLOBIN 12.7(L) 14.0 - 18.0 g/dL INTERFACE SYSTEM HEMATOCRIT 37.9(L) 41.0 - 53.0 % INTERFACE SYSTEM MCV 81.3(L) 84.0 - 103.0 Fl INTERFACE SYSTEM MCH 27.3 27.0 - 34.0 pg INTERFACE SYSTEM MCHC 33.5 30.0 - 35.0 g/dL INTERFACE SYSTEM RDW 14.6(H) 11.0 - 14.5 % INTERFACE SYSTEM PLATELETS 181 140 - 440 K/ul INTERFACE SYSTEM MPV 9.8 8.9 - 12.8 Fl INTERFACE SYSTEM NEUTROPHILS 52.4 42.2 - 75.2 % INTERFACE SYSTEM LYMPHOCYTES 34.0 24.0 - 44.0 % INTERFACE SYSTEM MONOCYTES 7.8 2.0 - 10.0 % INTERFACE SYSTEM EOSINOPHILS 5.0 0.0 - 7.0 % INTERFACE SYSTEM BASOPHILS 0.8 0.0 - 1.0 % INTERFACE SYSTEM NEUTROPHIL ABSOLUTE 2.1 2.0 - 8.0 K/ul INTERFACE SYSTEM LYMPHOCYTE ABSOLUTE 1.4 1.2 - 4.0 K/ul INTERFACE SYSTEM MONOCYTE ABSOLUTE 0.3 0.1 - 0.6 K/ul INTERFACE SYSTEM EOSINOPHIL ABSOLUTE 0.2 0.0 - 0.7 K/ul INTERFACE SYSTEM BASOPHILS ABSOLUTE 0.0 0.0 - 0.2 K/ul INTERFACE SYSTEM 06/19/2007 9:02 PM CDT Gary Carballo DO HEMATOLOGY ORDERABLES Edit ed INTERFACE SYSTEM Refer to clinic/hospital department * (ABNORMAL) POC ISTAT 6 (06/19/2007 8:52 PM CDT) SODIUM POC 143 136 - 145 mEq/L INTERFACE SYSTEM POTASSIUM POC 3.9 3.5 - 5.0 mEq/L INTERFACE SYSTEM CHLORIDE POC 112(H) 95 - 110 mEq/L INTERFACE SYSTEM GLUCOSE POC 91 70 - 110 mg/dL INTERFACE SYSTEM BLOOD UREA NITROGEN POC 14 9 - 20 mg/dL INTERFACE SYSTEM HEMATOCRIT POC 36.0(L) 41.0 - 53.0 % INTERFACE SYSTEM HEMOGLOBIN POC 12.0(L) 14.0 - 18.0 g/dL INTERFACE SYSTEM 06/19/2007 8:52 PM CDT Physician Sj Ed POINT OF CARE TESTING Edited INTERFACE SYSTEM Refer to clinic/hospital department * POC CREATININE (06/19/2007 8:51 PM CDT) CREATININE POC 1.3 0.7 - 1.5 mg/dL INTERFACE SYSTEM 06/19/2007 8:51 PM CDT us Physician Sj Ed POINT OF CARE TESTING Edited INTERFACE SYSTEM Refer to clinic/hospital department documented in this encounter Visit Diagnoses Diagnosis Unspecified cerebral artery occlusion with cerebral infarction (CMS/HCC)- Primary Unspecified cerebral artery occlusion with cerebral infarction documented in this encounter
--- NOTE | 2025-05-30 13:03 | ECG_ITS ---
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 Measurements Intervals [place] Rate: 70 P: 21 [place]: 188 QRS: -18 QRSD: 147 T: 128 QT: 399 QTc: 431 Interpretive Statements SINUS RHYTHM LEFT BUNDLE BRANCH BLOCK [120+ ms QRS DURATION, 80+ ms Q/S IN V1/V2, 85+ ms R IN I/aVL/V5/V6] Compared to ECG 05/30/2025 12:53:50 Left bundle-branch block now present Electronically Signed On 05-30-2025 18:01:26 CDT by Tessa Lawler M.D. [id number] [id number]
[2025-05-30 13:08] LABS: Hematocrit 47.4 % (37-53); Hemoglobin 15.30 g/dL (11.27-16.99); Mean Corpuscular HGB Conc 32.3 g/dL (30-55); Mean Corpuscular Hemoglobin 27.8 pg (27-33); Mean Corpuscular Volume 86.2 fl (82-101); Nucleated Red Blood Cells % 0 %; Platelet Count 204 10^3/cmm (157-399); Red Blood Count 5.50 10^6/uL (3.85-5.65); White Blood Count 8.89 10^3/uL (3.29-11.43)
[2025-05-30 13:28] LABS: Troponin(5th) Baseline 18 ng/L (0-15)
[2025-05-30 13:41] LABS: Alanine Aminotransferase 27 U/L (0-41); Albumin Level 4.9 g/dL (3.5-5.2); Alkaline Phosphatase 74 U/L (40-130); Anion Gap 18.2 (5-19); Aspartate Amino Transferase 23 U/L (0-40); Blood Urea Nitrogen 18 mg/dL (8-23); Calcium 10.1 mg/dL (8.5-10.5); Carbon Dioxide 25 mmol/L (22-29); Chloride 102 mmol/L (98-107); Creatinine Clr Calc Pharmacy 52.7225; Globulin 2.5 g/dL (1.3-4.6); Glucose 107 mg/dL (65-115); Lipase 32 U/L (13-60); Magnesium 2.3 mg/dL (1.7-2.3); NT Pro B Type Natriuretic Pept 88 pg/mL (0-125); Osmolality Calculated 294 mOsm/kg (285-295); Potassium 4.2 mmol/L (3.5-5.1); Sodium 141 mmol/L (136-145); Total Protein 7.4 g/dL (6.6-8.7)
--- NOTE | 2025-05-30 14:14 | W.ED.CHESTPA ---
HPI - Chest Pain General: Chief Complaint: Chest Pain Stated Complaint: Chest Pain Time Seen by Provider: 05/30/25 12:45 History of Present Illness: 74-year-old male history of stroke in 2004 on aspirin and a statin, hypothyroidism on Synthroid, chewing tobacco user, no cardiac history in his family, no history of hypertension known to him, known smoker, no known cardiac history per his report, no history of exertional chest pain in the past, presenting to emergency department with substernal pressure-like chest pain that started when he was driving home after a morning spent lifting heavy stumps. He reports that the pain did start while he was at rest but was shortly after exertion a few minutes, he reports that it lasted approximately 15 to 20 minutes before improving, right now he reports residual tightness/mild pressure to the chest without josé antonio chest pain, he denies any cough shortness of breath leg swelling calf tenderness recent travel or immobilization, denies nausea vomiting or diaphoresis, denies radiation of the pain into the arm or jaw. Risk Factors: Coronary artery disease risk factors: hyperlipidemia Thoracic aortic dissection risk factors: none Related Data Home Medications ?Medication ?Instructions ?Recorded ?Confirmed aspirin 81 mg tablet,delayed 81 mg PO DAILY 01/11/25 05/30/25 release (Adult Low Dose Aspirin) levothyroxine 150 mcg tablet 150 mcg PO DAILY 01/11/25 05/30/25 (Synthroid) multivitamin 1 tab PO DAILY 01/11/25 05/30/25 simvastatin 20 mg tablet 20 mg PO DAILY 01/11/25 05/30/25 Allergies Allergy/AdvReac Type Severity Reaction Status Date / Time No Known Allergies Allergy Verified 05/10/25 11:08 [facility] ED PFSH: Social History Smoking and tobacco/nicotine status: never used tobacco/nicotine Physical Exam Narrative: EXAM NARRATIVE: Gen: A&O NAD HEENT: NCAT, EOMI, not icteric. External ears normal. No rhinorrhea. Moist mucous membranes. Neck: Supple, full range of motion, no observable masses, No meningeal sign. Lungs: No Respiratory distress, lungs clear to auscultation bilaterally no rales or rhonchi CV: RRR, no edema, no tenderness palpation of the chest wall, no JVD Abdomen: Soft, nondistended, No rebound tenderness, no epigastric tenderness MSK: No joint swelling, no redness. Skin: No rashes, petechiae, lesions. Normal color per patient. Neuro: Normal Gait, Grossly intact. Psych: Appropriate for situation. Course Reevaluation(s): Reevaluation #1: Patient reevaluated after nitro reports relief of the chest pressure Time: 14:49 Reevaluation #2: Troponin minimally uptrending to 23 from 18, patient upgraded to cardiac stepdown unit, currently still chest pain-free, hospitalist informed Time: 15:21 Consultations: Consultation #1: Spoke with Dr. Lawler of cardiology who agrees with observation for inpatient risk stratification and further testing, he request the hospitalist call him for consultation as needed Time: 14:45 Consultation #2: Spoke to Dr. Bartholomew of [facility], he is going to wait for the second troponin to come back prior to admitting the patient. Time: 15:04 Vital Signs: Vital signs: Vital Signs Temperature 97.5 F L 05/30/25 12:14 Pulse Rate 55 L 05/30/25 15:20 Respiratory Rate 16 05/30/25 15:20 Blood Pressure 111/62 05/30/25 15:20 Pulse Oximetry 95 05/30/25 15:20 Oxygen Delivery Me thod Room Air 05/30/25 15:20 Oxygen Flow Rate 5 05/30/25 14:15 MDM - Chest Pain Medical Decision Making 74-year-old male history hyperlipidemia, stroke 20 years ago on aspirin and a statin, hypothyroidism, presenting with onset of pressure-like chest pain a few minutes after exerting himself this morning, resolved spontaneously approximately 20 minutes but now with residual chest pressure-like discomfort, no associated respiratory symptoms, no previous history of exertional chest pain in the past, in the ED today patient with normal blood pressure nondiaphoretic well-appearing, benign exam, EKG showing left bundle branch block with no priors to compare, no acute ischemia, heart score 5 with initial mildly elevated troponin, plan for trial of nitroglycerin, aspirin 162, repeat troponin, reassess for disposition. Lab Data 05/30/25 12:46 05/30/25 12:46 Radiology Impressions Chest X-Ray 05/30/25 12:46 IMPRESSION: No acute chest abnormality. Laboratory Results WBC 8.89 10^3/uL (3.29-11.43) 05/30/25 12:46 RBC 5.50 10^6/uL (3.85-5.65) 05/30/25 12:46 Hgb 15.30 g/dL (11.27-16.99) 05/30/25 12:46 Hct 47.4 % (37-53) 05/30/25 12:46 MCV 86.2 fl (82-101) 05/30/25 12:46 MCH 27.8 pg (27-33) 05/30/25 12:46 MCHC 32.3 g/dL (30-55) 05/30/25 12:46 RDW 13.2 % (12.1-15.1) 05/30/25 12:46 Plt Count 204 10^3/cmm (157-399) 05/30/25 12:46 MPV 9.3 fL (7.4-10.4) 05/30/25 12:46 Neut % (Auto) 76.0 % 05/30/25 12:46 Lymph % (Auto) 15.0 % 05/30/25 12:46 [place] % (Auto) 7.3 % 05/30/25 12:46 Eos % (Auto) 0.8 % 05/30/25 12:46 Baso % (Auto) 0.6 % 05/30/25 12:46 Neut # (Auto) 6.76 10^3/uL (1.8-7.7) 05/30/25 12:46 Lymph # (Auto) 1.3 10^3/uL (0.8-4.8) 05/30/25 12:46 [place] # (Auto) 0.7 10^3/uL (0.2-0.9) 05/30/25 12:46 Eos # (Auto) 0.1 10^3/uL (0.0-0.8) 05/30/25 12:46 Baso # (Auto) 0.1 10^3/uL (0.0-0.1) 05/30/25 12:46 Nucleated RBC % (auto) 0 % 05/30/25 12:46 Nucleated RBCs # 0.0 /100WBC 05/30/25 12:46 Sodium 141 mmol/L (136-145) 05/30/25 12:46 Potassium 4.2 mmol/L (3.5-5.1) 05/30/25 12:46 Chloride 102 mmol/L (98-107) 05/30/25 12:46 Carbon Dioxide 25 mmol/L (22-29) 05/30/25 12:46 Anion Gap 18.2 (5-19) 05/30/25 12:46 BUN 18 mg/dL (8-23) 05/30/25 12:46 Creatinine 1.4 mg/dL (0.7-1.2) H 05/30/25 12:46 GFR Calculation Not Reportable 05/30/25 12:46 Glucose 107 mg/dL (65-115) 05/30/25 12:46 Calculated Osmolality 294 mOsm/kg (285-295) 05/30/25 12:46 Calcium 10.1 mg/dL (8.5-10.5) 05/30/25 12:46 Magnesium 2.3 mg/dL (1.7-2.3) 05/30/25 12:46 Total Bilirubin 0.5 mg/dL (0.15-1.2) 05/30/25 12:46 AST 23 U/L (0-40) 05/30/25 12:46 ALT 27 U/L (0-41) 05/30/25 12:46 Alkaline Phosphatase 74 U/L (40-130) 05/30/25 12:46 Troponin T Baseline 18 ng/L (0-15) H 05/30/25 12:46 Troponin T 120 Minute 23.57 ng/L (0-15) H 05/30/25 14:42 Delta Troponin T 5.57 ABS# (0-10) 05/30/25 14:42 NT-Pro-B Natriuret Pep 88 pg/mL (0-125) 05/30/25 12:46 Total Protein 7.4 g/dL (6.6-8.7) 05/30/25 12:46 Albumin 4.9 g/dL (3.5-5.2) 05/30/25 12:46 Globulin 2.5 g/dL (1.3-4.6) 05/30/25 12:46 Lipase 32 U/L (13-60) 05/30/25 12:46 All radiology interpretation(s) finalized by discharge ED provider radiology interpretation(s): Chest x-ray negative for consolidation pulmonary edema or pleural effusions EKG Data EKG 1: I personally reviewed and interpreted this EKG as follows: EKG interpretation date: 05/30/25 EKG interpretation time: 12:53 Prior EKG tracings: not available for review Interpretation: Sinus rhythm at 68 bpm with suspected arm lead reversal, left bundle branch block, negative for STEMI by modified Sgarbossa, QTc 433 ms, EKG 2: I personally reviewed and interpreted this EKG as follows: EKG interpretation date: 05/30/25 EKG interpretation time: 14:23 Prior EKG tracings: available for review (First EKG suspect arm lead reversal so repeat was performed which confirms this) Interpretation: Sinus rhythm at 70 bpm, left bundle branch block noted, no STEMI by modified Sgarbossa criteria, QTc 419 ms, normal axis Clincial Decision Support The following clinical decision support tools were used to aid in care of the patient HEART Score -> History: Slightly Suspicous, EKG: Non-specific Changes, Age: 65 or more yrs, Risk Factors: 1 or 2 Risk Factors, Troponin: Baseline Trop 16-45 ng/L. Resulting HEART Score: 5. Discharge Plan Discharge Patient Disposition: Admitted As Inpatient Clinical Impression: Chest pain Qualifiers: Chest pain type: unspecified Qualified Code(s): R07.9 - Chest pain, unspecified Condition: Stable Coding Level of Care Code ED Yeast Fermentation Attendant for Sylvester Dover
[2025-05-30 15:16] LABS: Troponin 5 2HR 23.57 ng/L (0-15); Troponin 5 2HR Delta 5.57 ABS# (0-10)
--- NOTE | 2025-05-30 16:05 | PC.NURSE ---
received into room 103 from er via stretcher at 1600.report received.pt is alert and awake and oriented x 4.sb w/bbb on monitor.pt denies any chest pain or pressure.denies sob.oriented to room environment.instructed to notify staff for any sob,chest pain or tightness,or for any concerns/questions at all.pt verb understanding of instructions.
--- NOTE | 2025-05-30 16:12 | ECG_ITS ---
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 Interpretive Statements PROCEDURE: At the baseline, the EKG revealed sinus bradycardia with a left bundle branch block pattern. Nonspecific ST-T changes, possibly secondary.. The baseline heart was 51 bpm with a blood pressue of 126/80 mm of Hg Lexiscan was infused over a period of 20 seconds. A total of 0.4 milligrams of Lexiscan was infused. The stress phase was continued for a total of 5 minutes. Heart rate at the end of the stress phase was 64 bpm with a blood pressure 116/70 mm of Hg. The EKG at the peak infusion revealed no significant changes. Sestamibi was injected 20 seconds after the Lexiscan infusion. Heart rate at the end of the recovery phase was 82 bpm with a blood pressure of 120/70 mm of Hg. CONCLUSION: 1. The EKG response to Lexiscan infusion is uninterpretable due to the underlying left bundle branch block 2. No LexiScan induced chest pain or cardiac arrhythmia 3. Normal blood pressure and heart rate response 4. Sestamibi/sestamibi perfusion scan pending; see separate report. Electronically Signed On 05-31-2025 09:02:21 CDT by Tessa Lawler M.D. [email or web address] [id number]
[2025-05-30] MEDS: pantoprazole 40 mg SDV IVP (16:29)
--- NOTE | 2025-05-30 16:48 | PM.HP ---
Providers/Chief Complaint Admitting Physician: Luis Bartholomew MD Primary Care Provider: Rigoberto Youssef MD Chief Complaint: Chest Pain History of Present Illness Glenroy Mahajan is a 74 year old male with a past medical history of CVA requiring thrombectomy in 2006 at [facility], history of hyperlipidemia, hypothyroidism who presents [facility] for chest pain. Patient tells me that this afternoon he was removing a tree stump, he got into his car when he started experience substernal chest pain, pressure-like pain, started improving after about 20 minutes or so, currently continues to have some residual pain but minimal, denies any radiation, no personal history of CAD no family history of CAD no smoking no drug use, in the emergency room he was found to have a left bundle branch block, ER provider discussed findings with cardiology, no acute interventions recommended, hospitalist team has been called for admission, baseline troponin 18, it has risen to 23.56 at 2 hours, delta of 5.57 Review of Systems Card: Reports: chest pain Resp: Denies: dyspnea Medications/Allergies Home Medications ?Medication ?Instructions ?Recorded ?Confirmed ?Last Taken ?Type aspirin 81 mg tablet,delayed 81 mg PO DAILY 01/11/25 05/30/25 05/29/25 History release (Adult Low Dose Aspirin) levothyroxine 150 mcg tablet 150 mcg PO DAILY 01/11/25 05/30/25 05/30/25 History (Synthroid) multivitamin 1 tab PO DAILY 01/11/25 05/30/25 05/29/25 History simvastatin 20 mg tablet 20 mg PO DAILY 01/11/25 05/30/25 05/29/25 History Allergies Allergy/AdvReac Type Severity Reaction Status Date / Time No Known Allergies Allergy Verified 05/10/25 11:08 PFSH Acute PFSH: Medical History (Updated 05/30/25 @ 16:54 by Luis Bartholomew MD) History of CVA (cerebrovascular accident) Surgical History (Updated 05/30/25 @ 16:53 by Luis Bartholomew MD) History of thrombectomy Social History Smoking and tobacco/nicotine status: never used tobacco/nicotine Vitals/I&O/Wt Last Vital Signs Temp 97.5 F L 05/30/25 12:14 Pulse 56 L 05/30/25 16:20 Resp 17 05/30/25 16:20 BP 118/77 05/30/25 16:20 Pulse Ox 97 05/30/25 16:20 O2 Del Method Room Air 05/30/25 16:04 O2 Flow Rate 5 05/30/25 14:15 Weight last 48 hrs Weight 95.396 kg Weight 95.254 kg Physical Exam Const: COMMON NORMALS: no acute distress and patient oriented x3 HENMT: COMMON NORMALS: normocephalic HEAD & SCALP: normocephalic Resp: COMMON NORMALS: normal respiratory effort, No retractions, No use of accessory muscles and clear to auscultation bilaterally AUSCULTATION: clear to auscultation bilaterally Cardio: COMMON NORMALS: no JVD, regular rate, regular rhythm, S1 normal heart sound present and S2 normal heart sound present RATE: regular rate RHYTHM: regular rhythm HEART SOUNDS: S1 normal heart sound present and S2 normal heart sound present GI: COMMON NORMALS: Normal to inspection, nondistended, normoactive bowel sounds present, Soft to palpation and non-tender Extremity: COMMON NORMALS: no calf tenderness and no pedal edema Neuro: COMMON NORMALS: patient oriented x3, CN's II-XII intact bilaterally and moves all extremities Psych: COMMON NORMALS: mental status grossly normal Data 05/30/25 12:46 05/30/25 12:46 A&P Assessment and plan 1. Chest pain: 2. NSTEMI (non-ST elevated myocardial infarction): Plan: Chest pain, NSTEMI Plan - Serial EKGs, serial troponins, telemetry monitoring - Aspirin, statin - Monitor for chest pain - Nitro as needed - Cardiac echo - N.p.o. midnight, for stress test tomorrow morning - TSH, A1c, lipid PDMP PDMP Reviewed: Not Reviewed Attestations Medical Necessity Statement*: Patient requires hospitalization, outpatient with observation, for chest pain and NSTEMI Diagnoses Chest pain R07.9 NSTEMI (non-ST elevated myocardial infarction) I21.4
[2025-05-30 17:36] LABS: Cholesterol 153 mg/dL (0-200); HDL Cholesterol 43 mg/dL (60-100); NT Pro B Type Natriuretic Pept 89 pg/mL (0-125); Thyroid Stimulating Hormone 0.37 uIU/mL (0.27-4.20); Triglycerides 143 mg/dL (0-150)
--- NOTE | 2025-05-30 17:39 | ECG_ITS ---
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 Measurements Intervals [place] Rate: 54 P: 7 [place]: 185 QRS: -12 QRSD: 156 T: 131 QT: 437 QTc: 417 Interpretive Statements SINUS BRADYCARDIA LEFT BUNDLE BRANCH BLOCK [120+ ms QRS DURATION, 80+ ms Q/S IN V1/V2, 85+ ms R IN I/aVL/V5/V6] Compared to ECG 05/30/2025 13:03:28 Sinus rhythm no longer present Electronically Signed On 05-30-2025 17:56:14 CDT by Tessa Lawler M.D. [id number] [id number]
[2025-05-30 19:16] LABS: Troponin 5 6HR 17.35 ng/L (0-15)
[2025-05-30 19:19] LABS: Troponin 5 6HR Delta -0.65 ng/L (0-12)
[2025-05-30 19:47] LABS: Glucose Urine UA Negative (Normal); Nitrate Urine Negative (Negative); Specific Gravity, Urine 1.013 (1.005-1.030)
[2025-05-30 19:52] LABS: Add Urine Microscopic? YES
[2025-05-31] VITALS (14 sets, daily range): BP systolic 108–138; BP diastolic 65–81; PULSE 49–62; RESP 13–23; TEMP 36.6–36.8; O2SAT 92–94; BMI 28.5
[2025-05-31 04:05] LABS: Hematocrit 44.9 % (37-53); Hemoglobin 14.20 g/dL (11.27-16.99); Mean Corpuscular HGB Conc 31.6 g/dL (30-55); Mean Corpuscular Hemoglobin 27.9 pg (27-33); Mean Corpuscular Volume 88.2 fl (82-101); Nucleated Red Blood Cells % 0 %; Platelet Count 195 10^3/cmm (157-399); Red Blood Count 5.09 10^6/uL (3.85-5.65); White Blood Count 8.18 10^3/uL (3.29-11.43)
[2025-05-31 04:27] LABS: Anion Gap 14.4 (5-19); Blood Urea Nitrogen 18 mg/dL (8-23); Calcium 9.4 mg/dL (8.5-10.5); Carbon Dioxide 28 mmol/L (22-29); Chloride 105 mmol/L (98-107); Creatinine Clr Calc Pharmacy 58.7643; Glucose 94 mg/dL (65-115); Osmolality Calculated 298 mOsm/kg (285-295); Potassium 4.4 mmol/L (3.5-5.1); Sodium 143 mmol/L (136-145)
--- NOTE | 2025-05-31 10:01 | PC.CHAP ---
Pastoral Care Encounter/Spiritual Assessment Type of Contact [] Declined stratigrapher visit [] Patient/Family/Request visit [] Outpatient visit [] Follow-up visit [] Physician referral [] Code/Alert [x] Routine visit [] Staff referral [] Actively dying [] Patient sleeping [x] Family support [] [] Out of room [] Palliative care [] [] Receiving care in room [] Pre-surgical visit [] Trauma [] Long length of stay [] ICU visit [] Other: Relational/Emotional Strength [x] Patient feels connected with others/family/visitors/staff [] Distress [] Loneliness/isolation [] Abandonment Spirituality of Patient [x] Person of Lilibeth [] Attends Buddhism of their Lilibeth [x] Believes in Prayer [] Reads Bible or Catholic materials [] There are Spiritual issues to be addressed Cellular Biologist Interventions [x] Prayer [x] Active listening [] Non-anxious presence [x] Spiritual/emotional support [] Crisis/trauma care [] Spiritual counseling [] Bereavement support [] Provided bereavement packet [] Provided Bible/devotional materials [] Provided toy/stuffed animal, coloring book to patient or family member [] Provided Communion [] Anointing/[place] [] Salvation [x] Completed spiritual assessment [] Other: Impact on Illness or Injury [] Angry [] Fearful [] Anxious [] Often cries [] Exhaustion [] Unable to work [] Unable to attend cheondoism [] Unable to walk/stand [] Unable to read [] Unable to drive [] Unable to eat/drink [] Unable to sleep [] Unable to be with family [] Patient intubated [] Other: Summary Time spent with patient 5 min
--- NOTE | 2025-05-31 10:25 | PC.NURSE ---
stress test early this shift.tolerated well.
[2025-05-31 12:21] LABS: Estmated Average Glucose 117; Hemoglobin A1C 5.7 % (4.0-6.0)
--- NOTE | 2025-05-31 12:27 | PM.DCS ---
Discharge Providers Date of Admission: 05/30/25 15:21 Date of Discharge: May 31, 2025 Attending Provider at Admission: Luis Bartholomew MD Attending Provider at Discharge: Luis Bartholomew MD Primary Care Provider: Rigoberto Youssef MD Diagnoses at Discharge Discharge Diagnosis 1. Chest pain: 2. NSTEMI (non-ST elevated myocardial infarction): Reason for Visit Reason for Visit: Chest Pain Hospital Course Hospital Course Glenroy Mahajan is a 74 year old male with a past medical history of CVA requiring thrombectomy in 2006 at [facility], history of hyperlipidemia, hypothyroidism who presents [facility] for chest pain. Patient tells me that this afternoon he was removing a tree stump, he got into his car when he started experience substernal chest pain, pressure-like pain, started improving after about 20 minutes or so, currently continues to have some residual pain but minimal, denies any radiation, no personal history of CAD no family history of CAD no smoking no drug use, in the emergency room he was found to have a left bundle branch block, ER provider discussed findings with cardiology, no acute interventions recommended, hospitalist team has been called for admission, baseline troponin 18, it has risen to 23.56 at 2 hours, delta of 5.57 Patient was admitted to [facility] for chest pain Cardiac stress test IMPRESSIONS 1. Myocardial perfusion imaging revealing a small area of persistent decreased tracer uptake in the apical septal region suggesting myocardial scarring versus attenuation artifact 2. Normal LV ejection fraction of 53%. 3. LV wall motion analysis revealing no gross wall motion abnormalities. 4. Mildly dilated LV cavity with an end-systolic volume of 54 mL Low probability for coronary ischemia, based on the above findings. No similar previous studies are available for comparison Cardiac echo CONCLUSIONS Normal left ventricular size, systolic function and wall thickness, with no regional wall motion abnormalities. Left ventricular ejection fraction is estimated at 60 %. Grade I/IV diastolic dysfunction (abnormal relaxation filling pattern), normal to mildly elevated filling pressures. No significant valve abnormalities. There is no pericardial effusion. Right atrial pressure is around 5 mm of mercury. - No recurrent acute ST-T wave changes, - Baseline troponin 18, 6 hours 17.35, - No recurrent chest pain, relatively asymptomatic - For patient's left bundle branch block, discussed case with cardiology, recommended medical management with outpatient follow-up with cardiology, no acute interventions - Discharged on aspirin, statin, nitroglycerin - If any recurrent chest pain please go to emergency room Physical Exam Const: COMMON NORMALS: no acute distress and patient oriented x3 Resp: COMMON NORMALS: normal respiratory effort, No retractions, No use of accessory muscles and clear to auscultation bilaterally AUSCULTATION: clear to auscultation bilaterally Cardio: COMMON NORMALS: regular rate, regular rhythm, S1 normal heart sound present and S2 normal heart sound present RATE: regular rate RHYTHM: regular rhythm HEART SOUNDS: S1 normal heart sound present and S2 normal heart sound present GI: COMMON NORMALS: Normal to inspection, nondistended, normoactive bowel sounds present and non-tender Extremity: COMMON NORMALS: no pedal edema Neuro: COMMON NORMALS: patient oriented x3 Psych: COMMON NORMALS: mental status grossly normal Discharge Data Studies Completed and Pending Completed Studies During Hospitalization Category Date Time Status Sestamibi Stress Test Request Routine Exams 05/30/25 16:12 Completed XR chest 1V portable [id number] Stat Exams 05/30/25 12:46 Completed NM li perf SPECT r/s* [id number] Routine Nuc Med 05/31/25 16:12 Completed Pending at discharge Category Date Time Status Basic Metabolic Panel AM LABS Lab 06/01/25 04:00 Ordered Basic Metabolic Panel AM LABS Lab 06/02/25 04:00 Ordered Complete Blood Count w/Auto AM LABS Lab 06/01/25 04:00 Ordered Complete Blood Count w/Auto AM LABS Lab 06/02/25 04:00 Ordered CV. echo complete* [id number] Routine Ultrasound 05/31/25 16:07 Taken Radiology Impressions Chest X-Ray 05/30/25 12:46 IMPRESSION: No acute chest abnormality. Laboratory Results WBC 8.18 10^3/uL (3.29-11.43) 05/31/25 03:25 RBC 5.09 10^6/uL (3.85-5.65) 05/31/25 03:25 Hgb 14.20 g/dL (11.27-16.99) 05/31/25 03:25 Hct 44.9 % (37-53) 05/31/25 03:25 MCV 88.2 fl (82-101) 05/31/25 03:25 MCH 27.9 pg (27-33) 05/31/25 03:25 MCHC 31.6 g/dL (30-55) 05/31/25 03:25 RDW 13.4 % (12.1-15.1) 05/31/25 03:25 Plt Count 195 10^3/cmm (157-399) 05/31/25 03:25 MPV 9.6 fL (7.4-10.4) 05/31/25 03:25 Neut % (Auto) 62.2 % 05/31/25 03:25 Lymph % (Auto) 26.4 % 05/31/25 03:25 [place] % (Auto) 8.3 % 05/31/25 03:25 Eos % (Auto) 2.0 % 05/31/25 03:25 Baso % (Auto) 0.9 % 05/31/25 03:25 Neut # (Auto) 5.09 10^3/uL (1.8-7.7) 05/31/25 03:25 Lymph # (Auto) 2.2 10^3/uL (0.8-4.8) 05/31/25 03:25 [place] # (Auto) 0.7 10^3/uL (0.2-0.9) 05/31/25 03:25 Eos # (Auto) 0.2 10^3/uL (0.0-0.8) 05/31/25 03:25 Baso # (Auto) 0.1 10^3/uL (0.0-0.1) 05/31/25 03:25 Nucleated RBC % (auto) 0 % 05/31/25 03:25 Nucleated RBCs # 0.0 /100WBC 05/31/25 03:25 Sodium 143 mmol/L (136-145) 05/31/25 03:25 Potassium 4.4 mmol/L (3.5-5.1) 05/31/25 03:25 Chloride 105 mmol/L (98-107) 05/31/25 03:25 Carbon Dioxide 28 mmol/L (22-29) 05/31/25 03:25 Anion Gap 14.4 (5-19) 05/31/25 03:25 BUN 18 mg/dL (8-23) 05/31/25 03:25 Creatinine 1.3 mg/dL (0.7-1.2) H 05/31/25 03:25 GFR Calculation Not Reportable 05/31/25 03:25 Glucose 94 mg/dL (65-115) 05/31/25 03:25 Estimat Average Glucose 117 05/30/25 12:46 Hemoglobin A1c 5.7 % (4.0-6.0) 05/30/25 12:46 Calculated Osmolality 298 mOsm/kg (285-295) H 05/31/25 03:25 Calcium 9.4 mg/dL (8.5-10.5) 05/31/25 03:25 Magnesium 2.3 mg/dL (1.7-2.3) 05/30/25 12:46 Total Bilirubin 0.5 mg/dL (0.15-1.2) 05/30/25 12:46 AST 23 U/L (0-40) 05/30/25 12:46 ALT 27 U/L (0-41) 05/30/25 12:46 Alkaline Phosphatase 74 U/L (40-130) 05/30/25 12:46 Troponin T Baseline 18 ng/L (0-15) H 05/30/25 12:46 Troponin T 120 Minute 23.57 ng/L (0-15) H 05/30/25 14:42 Delta Troponin T 5.57 ABS# (0-10) 05/30/25 14:42 Troponin T Hi Sens 6Hr 17.35 ng/L (0-15) H 05/30/25 18:44 Troponin T Hi Sens 6Hr Delta -0.65 ng/L (0-12) L 05/30/25 18:44 NT-Pro-B Natriuret Pep 88 pg/mL (0-125) 05/30/25 12:46 NT-Pro-B Natriuret Pep 89 pg/mL (0-125) 05/30/25 12:46 Total Protein 7.4 g/dL (6.6-8.7) 05/30/25 12:46 Albumin 4.9 g/dL (3.5-5.2) 05/30/25 12:46 Globulin 2.5 g/dL (1.3-4.6) 05/30/25 12:46 Triglycerides 143 mg/dL (0-150) 05/30/25 12:46 Cholesterol 153 mg/dL (0-200) 05/30/25 12:46 LDL Cholesterol, Calc 81 mg/dL (50-129) 05/30/25 12:46 HDL Cholesterol 43 mg/dL (60-100) L 05/30/25 12:46 LDL/HDL Ratio 1.88 RATIO (0.00-3.22) 05/30/25 12:46 Cholesterol/HDL Ratio 3.56 mg/dL (1.0-5.00) 05/30/25 12:46 Lipase 32 U/L (13-60) 05/30/25 12:46 TSH 0.37 uIU/mL (0.27-4.20) 05/30/25 12:46 Urine Color Yellow (Yellow) 05/30/25 19:12 Urine Appearance Clear (CLEAR) 05/30/25 19:12 Urine pH 6.0 (5-7) 05/30/25 19:12 Ur Specific Holiday 1.013 (1.005-1.030) 05/30/25 19:12 Urine Protein Negative (Negative) 05/30/25 19:12 Urine Glucose (UA) Negative (Normal) 05/30/25 19:12 Urine Ketones Negative (Negative) 05/30/25 19:12 Urine Blood Negative (Negative) 05/30/25 19:12 Urine Nitrate Negative (Negative) 05/30/25 19:12 Urine Bilirubin Negative (Negative) 05/30/25 19:12 Urine Urobilinogen 1.0 mg/dL (Negative) 05/30/25 19:12 Ur Leukocyte Esterase Negative (Negative) 05/30/25 19:12 Urine RBC 0-2 /hpf (0-2) 05/30/25 19:12 Urine WBC 0-5 /hpf (0-5) 05/30/25 19:12 Ur Squamous Epith Cells 0-5 /hpf (0-5) 05/30/25 19:12 Amorphous Sediment Not Reportable 05/30/25 19:12 Urine Bacteria None seen /hpf (NONE) 05/30/25 19:12 Hyaline Casts 13.22 /lpf 05/30/25 19:12 Fine Granular Casts 0-4 /lpf H 05/30/25 19:12 Vitals Last Vital Signs Temp 98.2 F 05/31/25 04:30 Pulse 62 05/31/25 07:25 Resp 13 05/31/25 04:30 BP 120/70 05/31/25 07:25 Pulse Ox 94 05/31/25 04:30 O2 Del Method Room Air 05/31/25 04:30 O2 Flow Rate 5 05/30/25 14:15 Discharge Plan Discharge Patient Disposition: Home Condition: Stable Prescriptions: New nitroglycerin 0.4 mg Tablet, Sublingual 0.4 mg sublingual Q5M PRN (Reason: Chest Pain) 30 Days Qty: 30 0RF Continued multivitamin Tablet 1 tab PO DAILY aspirin [Adult Low Dose Aspirin] 81 mg tablet,delayed release (DR/EC) 81 mg PO DAILY simvastatin 20 mg tablet 20 mg PO DAILY levothyroxine [Synthroid] 150 mcg tablet 150 mcg PO DAILY Referrals: Rigoberto Youssef MD [Primary Care Provider, Family Practice] - 06/07/25 10:15 am Escobar Kwon MD [Physician, Cardiology] - 06/06/25 11:30 am Discharge Diet: Cardiac Discharge Activity: Resume usual activity Patient Instructions: Opioid Safety, Patient Portal & Lori Instructions Discharge Attestations Time Spent in Discharge Care*: greater than 30 min Quality Metrics Clinical Quality Measures [ No reported AMI, CVA or VTE this stay] Coding Level of Care Code 39919 Total time (in minutes) for Discharge: 45 Diagnoses Chest pain R07.9 Chest pain type: unspecified NSTEMI (non-ST elevated myocardial infarction) I21.4
--- NOTE | 2025-05-31 15:00 | PC.NURSE ---
discharge instructions given and explained.pt and spouse verb understanding of instructions.discharged via w/c to exit at 1450.spouse to drive pt home
--- NOTE | 2025-05-31 16:07 | USCV_ITS ---
Glenroy Mahajan Age: 74 Gender: M : 1950 Exam Date: 05/31/2025 09:39 Ordering Phys: Luis Bartholomew MD Technologist: ELBA [place] [facility] [place]: CP BP: 120 / 70 HR: 54 Rhythm: Sinus Technical Quality: Adequate MEASUREMENTS (Male / Female) Normal Values 2D ECHO LV Diastolic Diameter PLAX 4.4 cm 4.2 - 5.9 / 3.9 - 5.3 cm IVS Diastolic Thickness 1.1 cm 0.6 - 1.0 / 0.6 - 0.9 cm IVS Systolic Thickness 1.6 cm LVPW Diastolic Thickness 1.8 cm 0.6 - 1.0 / 0.6 - 0.9 cm LVPW Systolic Thickness 1.8 cm LVOT Diameter 2.2 cm LV Ejection Fraction 2D Teich 63.0 % LV Ejection Fraction MOD 4C 58.4 % LV Ejection Fraction MOD 2C 55.7 % LV Ejection Fraction 2C AL 56.0 % LA Diameter 3.6 cm RA Systolic Volume 4C AL 25.7 ml RA Systolic Volume 4C MOD 26.8 ml LA Sys Volume AL 47.9 cm cubed LA Sys Volume Index AL 22.1 cm cubed/m squared Aorta at Sinotubular Diameter 3.2 cm M-MODE LA Ao Ratio MM 1.5 AV Cusp Separation MM 1.9 cm DOPPLER AV Peak Velocity 135.0 cm/s LVOT Peak Velocity 92.0 cm/s AV Area Cont Eq vti 2.3 cm squared AV Area Cont Eq pk 2.5 cm squared MV Peak Velocity 69.0 cm/s MV Area PHT 3.6 cm squared Mitral E to A Ratio 0.6 TR Peak Velocity 111.0 cm/s TR Peak Gradient 4.9 mmHg TV Peak E Velocity 82.0 cm/s PV Peak Velocity 85.0 cm/s FINDINGS Left Ventricle Normal left ventricular size, systolic function and wall thickness, with no regional wall motion abnormalities. Left ventricular ejection fraction is estimated at 60 %. Grade I/IV diastolic dysfunction (abnormal relaxation filling pattern), normal to mildly elevated filling pressures. Right Ventricle The right ventricle is normal in size and function. Right Atrium The right atrium is normal in size. Left Atrium The left atrium is normal in size. Mitral Valve Structurally normal mitral valve without significant stenosis or prolapse. Trace mitral valve regurgitation. Aortic Valve Moderate aortic valve calcification. No aortic valve stenosis. No aortic valve regurgitation. Tricuspid Valve Structurally normal tricuspid valve without significant stenosis or regurgitation. Pulmonary artery systolic pressure is normal. Pulmonic Valve Structurally normal pulmonic valve without significant stenosis. There is no pulmonic regurgitation. Pericardium Normal pericardium without effusion. Aorta Normal ascending aorta dimension. IVC The inferior vena cava appears normal. CONCLUSIONS Normal left ventricular size, systolic function and wall thickness, with no regional wall motion abnormalities. Left ventricular ejection fraction is estimated at 60 %. Grade I/IV diastolic dysfunction (abnormal relaxation filling pattern), normal to mildly elevated filling pressures. No significant valve abnormalities. There is no pericardial effusion. Right atrial pressure is around 5 mm of mercury. Luana Meyer MD (Electronically Signed) Final Date: 31 May 2025 12:26 Amended: 31 May 2025 13:06 C
--- NOTE | 2025-05-31 16:12 | NMCV_ITS ---
NM li perf SPECT r/s* [id number] Glenroy Mahajan Age: 74 Gender: M : 1950 Exam Date: 05/31/2025 06:36 Ordering Phys: Luis Bartholomew MD Technologist: MICHELLE Mireles Exam Location: [facility] Indications: cp STRESS TEST Please see separate stress test report in [facility] for full findings IMAGE PROTOCOL Rest/Stress 1 Lexiscan Day Radiopharmaceutical Dose (mCi) Administration Site Administered by Rest: Tc-99m 10.6 IV Carol Lynch, PLANT SUPERVISOR Sestamibi Stress:Tc-99m 32.6 IV Carol Edouardgle, PLANT SUPERVISOR Sestamibi Rest: 31-May-2025 60 Discovery 630 Stress: 31-May-2025 30 Discovery 630 0.4mg Lexiscan. Images obtained in supine and prone position. SPECT RESULTS Technical Quality: Good Raw Data Analysis: Normal Image Corrections: No attenuation or motion correction applied Summed Stress Score: 2 Summed Rest Score: 4 Summed Difference Score: 0 PERFUSION FINDINGS Small area of moderately decreased resedate was noted in the apical septal segment. No significant reversibility was noted in this region FUNCTIONAL RESULTS (calculated via Gated SPECT) Stress Image LV EF (%): 53 Stress EDV (mL):115 TID: 0.91 Stress ESV (mL):54 FUNCTIONAL FINDINGS: Segmental wall motion analysis revealing no gross wall motion normalities. IMPRESSIONS 1. Myocardial perfusion imaging revealing a small area of persistent decreased tracer uptake in the apical septal region suggesting myocardial scarring versus attenuation artifact 2. Normal LV ejection fraction of 53%. 3. LV wall motion analysis revealing no gross wall motion abnormalities. 4. Mildly dilated LV cavity with an end-systolic volume of 54 mL Low probability for coronary ischemia, based on the above findings. No similar previous studies are available for comparison Dr Tessa Lawler MD [facility] (Electronically Signed) Final Date: 31 May 2025 08:59 S
== END 2025-05-31 14:50 | disposition home or self-care (01) ==
LOC: ER 15:06 → CSU 17:46
PROVIDERS: Family Medicine; Admitting Provider Family Medicine; Emergency Provider Student in an Organized Health Care Education/Training Program; PCP Family Medicine; Visit Provider Family Medicine
DX: I21.4 Non-ST elevation (NSTEMI) myocardial infarction (principal); E78.5 Hyperlipidemia, unspecified; E03.9 Hypothyroidism, unspecified; Z86.73 Personal history of transient ischemic attack (TIA), and cerebral infarction without residual deficits; Z79.82 Long term (current) use of aspirin; F17.220 Nicotine dependence, chewing tobacco, uncomplicated
CPT/HCPCS: 36415; 71045; 78452; 80048; 80053; 80061; 81001; 83036; 83690; 83735; 83880; 84443; 84484; 85025; 93005; 93017; 93306; 94664; 96372; 96374; 96375; 99285; A9500; G0378; J1650; J2470; J2785; J9999

== ENCOUNTER → 2025-06-06 11:19 | Outpatient (BNVA) | payer MEDICARE, SELFPAY | PROVIDERS: PCP Family Medicine; Visit Provider Internal Medicine Cardiovascular Disease | DX: I44.7 Left bundle-branch block, unspecified (principal); Z86.73 Personal history of transient ischemic attack (TIA), and cerebral infarction without residual deficits; Z79.82 Long term (current) use of aspirin; Z87.891 Personal history of nicotine dependence; I25.2 Old myocardial infarction | CPT/HCPCS: 99214 ==

== ENCOUNTER → 2025-08-09 10:01 | Outpatient (BNVA) | payer MEDICARE, SELFPAY | PROVIDERS: PCP Family Medicine; Visit Provider Student in an Organized Health Care Education/Training Program | DX: M75.42 Impingement syndrome of left shoulder (principal); Z71.89 Other specified counseling | CPT/HCPCS: 20610; 99213; J3301; J9999 ==